=== PATIENT | female | born 1985 | race Two or more races ===

== ENCOUNTER 2020-10-30 12:44 | Emergency (ER) | payer MEDICAID ==
[~2020-10-30] VITALS: Ht 172.7 cm; Wt 113.4 kg
[2020-10-30 12:55] VITALS: BP 113/69
[2020-10-30] MEDS ORDERED: DexAMETHasone SOD PHOS 10MG/1ML VIAL INJ IV ONE (13:15)
[2020-10-30] MEDS ORDERED: cefTRIAXone 1GM/50ML D5W 50 ML IV ONE (13:15)
== END 2020-10-30 13:14 | disposition left against medical advice (07) ==
LOC: ER 12:44
DX: U07.1 COVID-19 (principal); R06.03 Acute respiratory distress; J12.82 Pneumonia due to coronavirus disease 2019